=== PATIENT | female | born 1945 | race Caucasian/White ===

== ENCOUNTER 2023-03-21 22:34 | Inpatient (IN) | payer OTHER ==
[~2023-03-21] VITALS: Ht 167.6 cm; Wt 106.1 kg
[2023-03-21 23:15] LABS: Basophils # (auto) 0.1 10 ^3/uL (0-0.2); Eosinophils # (auto) 0 10 ^3/uL (0-0.8); Monocytes # (auto) 0.1 10 ^3/uL (0-1.3); Nucleated Red Blood Cells % 0.2 %
[2023-03-21 23:20] LABS: Basophils % (auto) 0.9 % (0.0-2.0); Eosinophils % (auto) 0.2 % (0.0-7.0); Hematocrit 31.9 % (36.0-46.0); Hemoglobin 10.2 g/dL (12.2-16.2); Lymphocytes # (auto) 0.3 10 ^3/uL (0.4-5.4); Lymphocytes % (auto) 4.3 % (10.0-50.0); Mean Corpuscular Hemoglobin 24.1 pg (28.0-32.0); Mean Corpuscular Hgb Conc. 31.8 g/dL (32.0-36.0); Mean Corpuscular Volume 75.7 fL (80.0-100.0); Monocytes % (auto) 2.3 % (0.0-12.0); Neutrophils # (auto) 5.6 10 ^3/uL (1.6-8.6); Neutrophils % (auto) 92.3 % (37.0-80.0); Red Blood Cells 4.22 10^6/uL (4.0-5.20); Red Cell Distribution Width 19.2 % (11.8-14.3)
[2023-03-21 23:30] LABS: INR 1.13 (0.9-1.15); Partial Thromboplastin Time 29.3 sec (24.6-33.4)
[2023-03-21 23:35] LABS: Albumin 3.1 g/dL (3.4-5.0); BUN/Creatinine Ratio 30.3 (10.0-20.0); Calcium 9.5 mg/dL (8.5-10.1); Potassium 4.2 mmol/L (3.5-5.1)
[2023-03-21 23:38] LABS: Bilirubin, Total 1.4 mg/dL (0.2-1.0); Total Protein 7.2 g/dL (6.4-8.2)
[2023-03-22] MEDS ORDERED: InsuLIN REG 1unit/0.01ml Soln (100units/ml) IV ONE (00:45)
[2023-03-22] MEDS ORDERED: ASPirin 81 mg TAB PO ONE (00:45)
[2023-03-22] MEDS ORDERED: AZITHROMYCIN 500MG/ 250ML 250 ML IV ONE (03:15)
[2023-03-22] MEDS ORDERED: cefTRIAXone 1GM/50ML D5W 50 ML IV ONE (03:15)
[2023-03-22] MEDS ORDERED: CEPH500C PO (09:00)
[2023-03-22] MEDS ORDERED: ISOS1TAB28 PO (09:00)
[2023-03-22] MEDS ORDERED: DOXY-111 PO (09:00)
[2023-03-22] MEDS ORDERED: DEXTROSE (50%) 50ML SYRG IV PRN (09:00)
[2023-03-22] MEDS ORDERED: MORPHINE SULFATE INJ 2 MG/ml SYRG IV PRN (09:00)
[2023-03-22] MEDS ORDERED: TORS20TA19 PO (09:00)
[2023-03-22] MEDS ORDERED: LEVO200T7 PO (09:00)
[2023-03-22] MEDS ORDERED: ROSU1TAB14 PO (09:00)
[2023-03-22] MEDS ORDERED: ALBUTEROL SULF 2.5 MG/0.5ML(0.5%) NEB SOLN NEB PRN (09:00)
[2023-03-22] MEDS ORDERED: POTA-264 (09:00)
[2023-03-22] MEDS ORDERED: NIFE1TAB30 (09:00)
[2023-03-22] MEDS ORDERED: INSUINJ2 SC (09:00)
[2023-03-22] MEDS ORDERED: LEVO50TA7 PO (09:00)
[2023-03-22] MEDS ORDERED: FUROSEMIDE 20 MG/2 ML VIAL IV ONE (09:00)
[2023-03-22] MEDS ORDERED: HYDR50TA15 PO (09:00)
[2023-03-22] MEDS ORDERED: SERT-160 PO (09:00)
[2023-03-22] MEDS ORDERED: NITROGLYCERIN 0.4 MG SL TAB SL PRN (09:00)
[2023-03-22] MEDS ORDERED: TORS10TA12 PO (09:00)
[2023-03-22 09:06] VITALS: BP 104/98
[2023-03-22] MEDS: FUROSEMIDE 20 MG/2 ML VIAL IV SCH (09:19)
[2023-03-22] MEDS: ASPirin 81 mg TAB PO SCH (09:20)
[2023-03-22] MEDS: LEVOTHYROXINE SODIUM 50 MCG TAB PO SCH (09:21)
[2023-03-22] MEDS: SERTRALINE HCL 50 MG TAB PO SCH ×2 (09:22→22:42)
[2023-03-22] MEDS: ISOSORBIDE MONONITRATE ER 60 MG TAB PO SCH (09:22)
[2023-03-22 09:56] LABS: Cholesterol 123 mg/dL (< 200); HDL Cholesterol 45 mg/dL (40-59); LDL Cholesterol 64 mg/dL (< 100); Triglycerides 131 mg/dL (< 150)
[2023-03-22] MEDS: ALBUTEROL SULF 2.5 MG/0.5ML(0.5%) NEB SOLN NEB SCH ×3 (11:27→19:21)
[2023-03-22] MEDS: IPRATROPIUM BROM 0.5 MG/2.5ML INH SOL NEB SCH ×3 (11:28→19:21)
[2023-03-22] MEDS: InsuLIN REG 1unit/0.01ml Soln (100units/ml) SC SCH ×3 (11:30→23:48)
[2023-03-22] MEDS: ACCU-CHEK COMFORT CURVE STRIP VI SCH ×3 (11:30→23:42)
[2023-03-22 22:05] VITALS: BP 145/65
[2023-03-22] MEDS: ACETAMINOPHEN 325 MG TAB PO PRN (22:37)
[2023-03-23 05:00] VITALS: BP 145/76
[2023-03-23] MEDS: ALBUTEROL SULF 2.5 MG/0.5ML(0.5%) NEB SOLN NEB SCH ×3 (06:50→19:13)
[2023-03-23] MEDS: ACCU-CHEK COMFORT CURVE STRIP VI SCH ×4 (06:50→21:52)
[2023-03-23] MEDS: InsuLIN REG 1unit/0.01ml Soln (100units/ml) SC SCH ×4 (06:50→21:52)
[2023-03-23] MEDS: IPRATROPIUM BROM 0.5 MG/2.5ML INH SOL NEB SCH ×3 (06:50→19:13)
[2023-03-23 07:17] LABS: Eosinophils # (auto) 0.1 10 ^3/uL (0-0.8); Hematocrit 27.8 % (36.0-46.0); Monocytes # (auto) 0.2 10 ^3/uL (0-1.3); Neutrophils # (auto) 2.5 10 ^3/uL (1.6-8.6); Neutrophils % (auto) 64.5 % (37.0-80.0); Red Cell Distribution Width 18.9 % (11.8-14.3)
[2023-03-23 07:19] LABS: Basophils # (auto) 0 10 ^3/uL (0-0.2); Basophils % (auto) 1.2 % (0.0-2.0); Eosinophils % (auto) 2.5 % (0.0-7.0); Lymphocytes % (auto) 26.8 % (10.0-50.0); Mean Corpuscular Hemoglobin 24.8 pg (28.0-32.0); Mean Corpuscular Hgb Conc. 32.3 g/dL (32.0-36.0); Mean Corpuscular Volume 76.6 fL (80.0-100.0); Nucleated Red Blood Cells % 0.2 %; Red Blood Cells 3.63 10^6/uL (4.0-5.20); White Blood Cell 3.8 10^3/uL (4.4-10.8)
[2023-03-23 07:53] LABS: Albumin 2.8 g/dL (3.4-5.0); BUN/Creatinine Ratio 29.9 (10.0-20.0); Calcium 8.2 mg/dL (8.5-10.1); Total Protein 6.4 g/dL (6.4-8.2)
[2023-03-23 08:30] VITALS: BP 150/71
[2023-03-23] MEDS: cefTRIAXone 1GM/50ML D5W 50 ML IV SCH (09:22)
[2023-03-23] MEDS: FUROSEMIDE 20 MG/2 ML VIAL IV SCH ×2 (09:23→18:05)
[2023-03-23] MEDS: ASPirin 81 mg TAB PO SCH (09:23)
[2023-03-23] MEDS: SERTRALINE HCL 50 MG TAB PO SCH ×2 (09:23→21:46)
[2023-03-23] MEDS: LEVOTHYROXINE SODIUM 50 MCG TAB PO SCH (09:24)
[2023-03-23] MEDS: ISOSORBIDE MONONITRATE ER 60 MG TAB PO SCH (09:27)
[2023-03-23] MEDS: AZITHROMYCIN 500MG/ 250ML 250 ML IV SCH (11:22)
[2023-03-23] MEDS ORDERED: LABETALOL HCL 5 MG/ML 4ML SYRINGE IV PRN (12:30)
[2023-03-23 13:00] VITALS: BP 121/50
[2023-03-23 14:33] LABS: % Iron Saturation 7.7 % (15-50)
[2023-03-23 17:00] VITALS: BP 152/69
[2023-03-23] MEDS: ACETAMINOPHEN 325 MG TAB PO PRN (21:47)
[2023-03-23 22:00] VITALS: BP 154/69
[2023-03-23] MEDS ORDERED: ATORVASTATIN 20 MG TAB PO SCH (22:00)
[2023-03-24] MEDS: IPRATROPIUM BROM 0.5 MG/2.5ML INH SOL NEB SCH ×4 (00:17→18:33)
[2023-03-24] MEDS: ALBUTEROL SULF 2.5 MG/0.5ML(0.5%) NEB SOLN NEB SCH ×4 (00:17→18:32)
[2023-03-24 05:00] VITALS: BP 136/51
[2023-03-24] MEDS: ACCU-CHEK COMFORT CURVE STRIP VI SCH ×3 (05:47→17:00)
[2023-03-24] MEDS: InsuLIN REG 1unit/0.01ml Soln (100units/ml) SC SCH ×3 (05:48→19:58)
[2023-03-24] MEDS: FUROSEMIDE 20 MG/2 ML VIAL IV SCH ×2 (05:49→19:54)
[2023-03-24 06:30] LABS: Eosinophils # (auto) 0.1 10 ^3/uL (0-0.8); Hemoglobin 9.2 g/dL (12.2-16.2); Monocytes # (auto) 0.2 10 ^3/uL (0-1.3); Neutrophils # (auto) 2.3 10 ^3/uL (1.6-8.6); Red Blood Cells 3.66 10^6/uL (4.0-5.20); White Blood Cell 3.4 10^3/uL (4.4-10.8)
[2023-03-24 06:33] LABS: Basophils # (auto) 0 10 ^3/uL (0-0.2); Basophils % (auto) 1.5 % (0.0-2.0); Eosinophils % (auto) 2.4 % (0.0-7.0); Hematocrit 27.6 % (36.0-46.0); Lymphocytes # (auto) 0.8 10 ^3/uL (0.4-5.4); Lymphocytes % (auto) 23.7 % (10.0-50.0); Mean Corpuscular Hgb Conc. 33.2 g/dL (32.0-36.0); Mean Corpuscular Volume 75.5 fL (80.0-100.0); Monocytes % (auto) 5.1 % (0.0-12.0); Neutrophils % (auto) 67.3 % (37.0-80.0); Nucleated Red Blood Cells % 0.3 %
[2023-03-24 06:53] LABS: Calcium 8.1 mg/dL (8.5-10.1); Potassium 3.7 mmol/L (3.5-5.1)
[2023-03-24 06:56] LABS: BUN/Creatinine Ratio 33.6 (10.0-20.0)
[2023-03-24 09:00] VITALS: BP 132/61
[2023-03-24] MEDS: cefTRIAXone 1GM/50ML D5W 50 ML IV SCH (09:43)
[2023-03-24] MEDS: ASPirin 81 mg TAB PO SCH (09:44)
[2023-03-24] MEDS: LEVOTHYROXINE SODIUM 50 MCG TAB PO SCH (09:44)
[2023-03-24] MEDS: SERTRALINE HCL 50 MG TAB PO SCH (09:44)
[2023-03-24] MEDS: ISOSORBIDE MONONITRATE ER 60 MG TAB PO SCH (09:45)
[2023-03-24] MEDS: AZITHROMYCIN 500MG/ 250ML 250 ML IV SCH (09:45)
[2023-03-24] MEDS ORDERED: NIFEdipine ER 30 MG TAB PO SCH (10:00)
[2023-03-24 13:00] VITALS: BP 137/60
[2023-03-24 17:00] VITALS: BP 146/66
[2023-03-24 20:56] VITALS: BP 146/66
== END 2023-03-24 21:25 | disposition short-term general hospital (02) | DRG 871 ==
LOC: ER 22:34 → TELE 03-22 08:58 → UNDOADMIN 03-22 09:12 → TELE 03-22 09:12 → TELE-WESTW 03-22 22:25
PROVIDERS: ADMIT Nurse Practitioner Family; ATTEND Nurse Practitioner Family
DX: A41.9 Sepsis, unspecified organism (principal); I50.43 Acute on chronic combined systolic (congestive) and diastolic (congestive) heart failure; J15.6 Pneumonia due to other Gram-negative bacteria; J96.01 Acute respiratory failure with hypoxia; I13.0 Hypertensive heart and chronic kidney disease with heart failure and stage 1 through stage 4 chronic kidney disease, or unspecified chronic kidney disease; E87.1 Hypo-osmolality and hyponatremia; N18.31 Chronic kidney disease, stage 3a; I27.20 Pulmonary hypertension, unspecified; I08.0 Rheumatic disorders of both mitral and aortic valves; E66.01 Morbid (severe) obesity due to excess calories; E11.22 Type 2 diabetes mellitus with diabetic chronic kidney disease; E03.9 Hypothyroidism, unspecified; D69.6 Thrombocytopenia, unspecified; Z99.81 Dependence on supplemental oxygen; Z95.2 Presence of prosthetic heart valve; Z95.0 Presence of cardiac pacemaker; Z88.2 Allergy status to sulfonamides; Z88.8 Allergy status to other drugs, medicaments and biological substances; Z82.49 Family history of ischemic heart disease and other diseases of the circulatory system; Z68.37 Body mass index [BMI] 37.0-37.9, adult
CPT/HCPCS: 36415; 36600; 71045; 80048; 80053; 80061; 82805; 82962; 83036; 83540; 83550; 83880; 84443; 84484; 85025; 85379; 85610; 85730; 87040; 93005; 93306; 93970; 94640; 96365; 96367; 96375; G0378; J0696; J1815; J3490